=== PATIENT | male | born 1945 | race Hispanic/Latino ===

== ENCOUNTER 2018-09-20 06:00 | Day surgery (SDC) | payer MEDICARE, BC ==
[2018-09-17 12:42] VITALS: BMI 29.8
[2018-09-20 07:25] VITALS: RESP 18
[2018-09-20] MEDS ORDERED: Midazolam 2 MG/2 ML VIAL ONE (08:10)
[2018-09-20] MEDS ORDERED: cefTRIAXone 1 GM in NS 100 ML BAG IVPB ONE (08:37)
[2018-09-20] MEDS ORDERED: cefTRIAXone (Rocephin) 1 gm Inj ONE (08:39)
[2018-09-20] MEDS ORDERED: Morphine 2 mg/ml ISec IVP PRN ×2 (08:44→08:49)
[2018-09-20] MEDS ORDERED: Lactated Ringer's 1,000 ML IV SCH (08:45)
[2018-09-20 09:13] VITALS: O2SAT 98
[2018-09-20 09:40] VITALS: BP 135/58; PULSE 58; TEMP 98.1
[2018-09-20] MEDS ORDERED: Gentamicin 80 mg in 0.9% NS 80 MG/100 ML BAG IVPB ONE (09:46)
--- NOTE | 2018-09-20 11:08 | CARD ---
APPROVED REPORT Date of service: 09/20/2018 EKG Measurement Heart [id number] <Conclusion> Normal sinus rhythm RSR' Pattern V1.
--- NOTE | 2018-09-20 14:58 | PN ---
DATE: 09/20/2018 IMMEDIATE POSTOP NOTE PREOPERATIVE DIAGNOSIS: Elevated PSA, voiding dysfunction. POSTOPERATIVE DIAGNOSIS: Elevated PSA, voiding dysfunction. PROCEDURE: Ultrasound of the prostate, ultrasound-guided prostate biopsy. SURGEON: Hayes Downing MD BLOOD LOSS: Less than 10 mL. The patient is in recovery room, in stable condition. Vital signs noted. Doing well. The plan is as follows, resume diet and discharge home. Hayes Downing MD
--- NOTE | 2018-09-20 21:19 | HP ---
DATE OF EXAM: 09/20/2018 UROLOGY ADMISSION HISTORY AND PHYSICAL HISTORY OF PRESENT ILLNESS: This urology admission is elevated PSA and voiding dysfunction. A very pleasant gentleman who is being admitted now for prostate ultrasound and biopsy. PAST MEDICAL AND SURGICAL HISTORY: As listed above. The patient of Dr. Daniels. No other significant urology history. SOCIAL HISTORY: He lives with his , essentially otherwise unremarkable. REVIEW OF SYSTEMS: As listed above and noncontributory. MEDICATIONS: See the chart. ALLERGIES: SEE THE CHART. PHYSICAL EXAMINATION: VITAL SIGNS: Within normal limits including the chart. LUNGS: Clear. HEART: S1 and S2. ABDOMEN: Overall soft and nontender. Normal bowel sounds. RECTAL: A 30 g prostate, soft and smooth. LABORATORY DATA: See chart. DIAGNOSES: Elevated PSA, voiding dysfunction, nocturia, decreased force of stream, both irritative and obstructive complaints. ASSESSMENT: A very pleasant gentleman with the above history, discussed options. PLAN: 1. Antibiotic prophylaxis. 2. Ultrasound of prostate. 3. Ultrasound-guided prostate biopsy . Hayes Downing MD
--- NOTE | 2018-09-21 08:30 | OP ---
PROCEDURE DATE: 09/20/2018 UROLOGY OPERATIVE REPORT PREOPERATIVE DIAGNOSES: Elevated prostate-specific antigen, voiding dysfunction, irritative and obstructive voiding complaints, decreased force of stream, nocturia. POSTOPERATIVE DIAGNOSES: Elevated prostate-specific antigen, voiding dysfunction, irritative and obstructive voiding complaints, decreased force of stream, nocturia. PROCEDURE: Ultrasound of prostate, ultrasound-guided prostate biopsy. SURGEON: Hayes Downing MD. SPECIMENS: Benign prostate cores. COMPLICATIONS: There were no complications. ESTIMATED BLOOD LOSS: Less than 10 mL. Post-biopsy rectal exam is within normal limits. Minimal blood. The patient tolerated the procedure well. INDICATIONS: See history and physical for details. The patient is here for the above-listed procedure. We discussed options, risks, benefits, and alternatives. DESCRIPTION OF PROCEDURE: The patient was brought into the OR and placed on the table in decubitus position. A probe inserted via the rectum. A time-out was called to confirm the patient, positioning. Antibiotic prophylaxis was used. Probe inserted via the rectum. We took pictures, transverse and longitudinal. Prostate volume measured to be about 40 mL. Cannot really print it up. I do have one picture which I just took with the cell phone just for documentation. The prostate volume is 30-40 mL. There is some prostatic calcification. No specific hypoechoic lesions. We began our random biopsy section involving left base, left mid, left apex, right base, right mid, right apex. Two at each area, lateral, medial, lateral, medial, lateral, medial. Total of 12 cores were sent. Post-biopsy records are within normal limits. The patient tolerated it without complication. Hayes Downing MD
== END 2018-09-20 12:30 | disposition home or self-care (01) ==
LOC: SDS 06:00
PROVIDERS: ATTEND Urology
DX: C61 Malignant neoplasm of prostate (principal); R97.20 Elevated prostate specific antigen [PSA]; R35.1 Nocturia
CPT/HCPCS: 55700; 88305; 93005; J0696; J1580 ×2; J2250; J2270; J2405; J3010; J7120